=== PATIENT | male | born 1960 | race Caucasian/White ===

== ENCOUNTER 2018-04-11 08:28 | Day surgery (SDC) | payer OTHER ==
--- NOTE | 2018-04-11 05:13 | History and Physical Report ---
DATE: 04/10/2018. CHIEF COMPLAINT AND HISTORY OF CHIEF COMPLAINT: This patient presents with a history of an intractable postcervical laminectomy radiculopathy. Due to the failure of therapy, a spinal cord stimulator trial was conducted on 02/20/2018 with greater than 75 percent pain control. Due to the failure of all therapies and the success of the stimulator trial, the patient is here for permanent implantation of a spinal cord stimulator. PAST MEDICAL HISTORY: Hypertension. PAST SURGICAL HISTORY: Shoulder surgery, hip surgery, knee surgery, lumbar spinal surgery. MEDICATIONS ON ADMISSION: To be provided. ALLERGIES: None. SOCIAL HISTORY: Noncontributory. FAMILY HISTORY: Cancer. REVIEW OF SYSTEMS: The patient is appropriate and in no acute distress. The remainder of the systems review shows glasses, degenerative arthritis, hypertension. PHYSICAL EXAMINATION: General: Height and weight unavailable. Vital Signs: Not available. HEENT: Within normal limits. Lungs: Clear. Heart: Regular rate and rhythm. Abdomen: Nontender. Musculoskeletal: Examination of the musculoskeletal system shows diffuse tenderness throughout the cervical spine. Range of motion does produce pain throughout the neck and extending into the shoulder and arms bilaterally. No motor or sensory field abnormalities. Neurologic: Cranial nerves are intact. IMPRESSION: 1. CERVICAL RADICULITIS, ICD-10 CODE M54.12. 2. POSTLAMINECTOMY SYNDROME, ICD-10 CODE M96.1. PLAN: The patient is here following the successful trial for permanent spinal cord stimulator implant. The potential risks, side effects, and complications have been carefully reviewed and discussed. Information was provided by the health therapist, and he had direct contact with the clinical specialist to educate and inform the patient of the risks. He understands and has consented. The procedure will be considered outpatient, although an overnight stay will be evaluated. JOB NUMBER: [id number] cc: Saige Casey
[~2018-04-11 08:28] MED LIST: ACETAMINOPHEN 1,000 MG/100 ML BTL IV ONE; CEFAZOLIN 2 Gram 2 GM/50 ML BAG IVPB ONE; FAMOTIDINE 20MG TABLET PO ONE; METOCLOPRAMIDE 10 MG TABLET PO ONE; SCOPOLAMINE 1 PATCH TDSY TD ONE
[2018-04-11] MEDS ORDERED: LIDOCAINE 1% MDV (10MG/ML) 20ML VIAL SQ ONE (08:29)
[2018-04-11] MEDS ORDERED: *PACU ONLY* KETAMINE HCL 10 MG/ML (20ML) VIAL IV ONE (08:29)
[2018-04-11] MEDS ORDERED: FENTANYL PF 100MCG/2ML VIAL IV ONE ×2 (08:29)
[2018-04-11] MEDS ORDERED: LIDOCAINE 1% W/EPI 1:200,000 MPF 30ML SQ ONE (08:29)
[2018-04-11] MEDS ORDERED: BUPIVACAINE 0.5% W/EPI MPF 30 ML VIAL IVP ONE (08:29)
[2018-04-11] MEDS ORDERED: CEFAZOLIN 1G VIAL IM ONE (08:29)
[2018-04-11] MEDS ORDERED: MIDAZOLAM HCL 2MG/2ML VIAL IV ONE (08:29)
[2018-04-11] MEDS ORDERED: FLUMAZENIL 1MG/10ML VIAL IV ONE (08:29)
[2018-04-11] MEDS ORDERED: PROPOFOL 10 MG/ML VIAL IV ONE (08:29)
--- NOTE | 2018-04-11 11:17 | Operative Note - Ferro ---
DATE OF SURGERY: 04/11/18 PREOPERATIVE DIAGNOSIS: POST CERVICAL LAMINECTOMY SYNDROME, ICD-10 CODE = M96.1 WITH RADICULOPATHY, ICD- 10 CODE = M54.12. SURGERY: 1. FLUOROSCOPIC-GUIDED EPIDURAL ACCESS LEFT T1-2. PLACEMENT OF SPINAL CORD STIMULATOR LEAD 1, A [employer] INFINION 16 WITH 6 ELECTRODES POSITIONED LEFT C2. 2. FLUOROSCOPIC-GUIDED EPIDURAL ACCESS LEFT T2-3. PLACEMENT OF SPINAL CORD STIMULATOR LEAD 2, A [employer] INFINION 16 WITH 6 ELECTRODES POSITIONED RIGHT C2. 3. COMPLEX PROGRAMMING OF LEAD 1 OVER 20 MINUTES FOLLOWED BY COMPLEX PROGRAMMING OF LEAD 2 OVER 20 MINUTES. 4. INCISION, SUBCUTANEOUS DISSECTION, AND ANCHORING OF LEAD 1 AND LEAD 2 TO SUPRASPINOUS FASCIA USING A [employer] LOCKING ANCHOR. 5. INCISION, SUBCUTANEOUS DISSECTION, AND CREATION OF A SUBCUTANEOUS POUCH LEFT FLANK, A SITE PICKED BY PATIENT FOR GENERATOR IDENTIFIED [employer] PROGRAMMABLE, RECHARGEABLE WAVEWRITER. 6. TUNNELING BETWEEN POUCHES WITH PLACEMENT OF EXTERNAL PORTION OF LEAD 1 AND LEAD 2 INTO GENERATOR POUCH, EACH LEAD INTERFACED TO GENERATOR. 7. CLOSURE OF BOTH INCISIONS WITH VICRYL FOR FASCIA AND A RUNNING SUBCUTICULAR VICRYL FOR SKIN. DERMABOND CLOSURE. 8. COMPLEX PROGRAMMING INTERNAL GENERATOR HOME USE 2 STIMULATORS RECOVERY ROOM 20 MINUTES. SURGEON: STACEY BARONE D.O. ANESTHESIA: LOCAL SEDATION. ANESTHESIA PROVIDER: VALARIE ROSENBAUM CRNA. INDICATIONS: This patient with a history of an intractable cervical radiculopathy secondary to spinal surgery had a stimulator trial conducted with 75 to 85% pain control. Due to the failure of all therapies and the success of the trial, he presents today for implantation of a permanent system. SURGERY: Intravenous line, vital sign monitoring, IV sedation, prepped and draped in sterile technique. Under imaging, the epidural interspace left of the midline at T1-2 and 2-3 were marked and infiltrated. Using standard epidural needles with [id number] at T1-2, spinal cord stimulator lead 1, a [employer] Infinion 16 with 6 electrodes positioned left of midline at C2. Epidural access at 2-3, spinal cord stimulator lead 2, also a [employer] Infinion 16 with 6 electrodes positioned right at C2. Complex programming of lead 1 over 20 minutes followed by complex programming of lead 2 over 20 minutes resulting in complete patterns of stimulation across the back of his neck, shoulders, and arms. The patient indicating we had all the areas of the pain. He was given the option to implant or continue to program. He opted to implant. The skin above and below the needles infiltrated, incision made, and subcutaneous dissection was conducted to the supraspinous fascia. Each lead was then anchored to the supraspinous fascia with a [employer] locking anchor once the needles had been removed. At the left flank, a site picked by the patient for the generator, a [employer] programmable, rechargeable WaveWriter, skin infiltrated, incision made and subcutaneous dissection was conducted to form a pouch of suitable size and depth for the generator. Antibiotic irrigation and Bovie for hemostasis. A tunneling tool was then used to carry the leads into the generator pouch and each lead was interfaced with the generator. The leads were placed into their pouch and secured to the posterior fascia with a nonabsorbable suture. Both incisions were closed with Vicryl for fascia and a running subcuticular Vicryl for skin. A Dermabond closure was placed. He was transported to the Recovery stable. No side-effects from the procedure or the sedation. Full functionality of the extremities. No significant or appreciable pain. He was monitored until stable and then prepared for admission for overnight observation. IN THE MORNING, DISCHARGE INSTRUCTIONS: 1. The sites will remain clean and dry. The Dermabond will allow showering but no bathing, no sitting in water. 2. Standard medications resumed including the antibiotic, Levaquin, 500 mg once a day for 14 days. 3. The office will contact the patient in 12 to 24 hours to set up an appointment in 7 to 10 days to evaluate the sites. Until then, he is to keep his activities low. All other instructions provided, numbers to contact if problems given. He will be discharged in the morning. cc: Primary JOB NUMBER: [id number] MTDD
[2018-04-11] MEDS ORDERED: METOCLOPRAMIDE HCL 10 MG/2 ML VIAL IVP PRN (11:20)
[2018-04-11] MEDS ORDERED: METOCLOPRAMIDE 10 MG TABLET PO PRN (11:20)
[2018-04-11] MEDS ORDERED: HYDROMORPHONE HCL 2 MG/ML VIAL IM PRN ×2 (11:20)
[2018-04-11] MEDS ORDERED: TEMAZEPAM 15 MG CAPSULE PO PRN ×2 (11:20)
[2018-04-11] MEDS ORDERED: AL HYDROX/MAG HYDROX 30ML UD PO PRN (11:20)
[2018-04-11] MEDS ORDERED: OXYCODONE/APAP 10MG-325MG TABLET PO PRN ×2 (11:20)
[2018-04-11] MEDS ORDERED: DIPHENHYDRAMINE HCL 50 MG/ML VIAL IVP PRN ×2 (11:20)
[2018-04-11] MEDS ORDERED: SENNOSIDES/DOCUSATE SODIUM UD CAPSULE PO PRN ×2 (11:20)
[2018-04-11] MEDS ORDERED: HYDROCODONE/APAP 7.5/325MG TABLET PO PRN ×2 (11:20)
[2018-04-11] MEDS ORDERED: DIPHENHYDRAMINE HCL 25 MG CAPSULE PO PRN ×2 (11:20)
[2018-04-11] MEDS ORDERED: ACETAMINOPHEN 325 MG TAB PO PRN ×2 (11:20)
[2018-04-11] MEDS ORDERED: TRAMADOL HCL 50 MG TABLET PO PRN (12:31)
[2018-04-11] MEDS: TRAMADOL HCL 50 MG TABLET PO PRN ×2 (12:57→18:13)
[2018-04-11] MEDS: CEFAZOLIN 2 Gram 2 GM/50 ML BAG IVPB SCH (18:11)
[2018-04-11] MEDS ORDERED: PATIENT OWN MED: FINASTERIDE 5 MG PO SCH (22:00)
[2018-04-11] MEDS ORDERED: 0.9 % SODIUM CHLORIDE 10ML SYR IVP SCH (22:00)
[2018-04-12] MEDS: TRAMADOL HCL 50 MG TABLET PO PRN ×2 (00:04→06:06)
[2018-04-12] MEDS: CEFAZOLIN 2 Gram 2 GM/50 ML BAG IVPB SCH (02:11)
[2018-04-12] MEDS ORDERED: BENAZEPRIL PO SCH (10:00)
[2018-04-12] MEDS ORDERED: AMLODIPINE PO SCH (10:00)
[2018-04-12] MEDS ORDERED: HCTZ PO SCH (10:00)
[2018-04-12] MEDS ORDERED: TRIAMTERENE PO SCH (10:00)
--- NOTE | 2018-04-14 15:12 | RADIOLOGY REPORT ---
DATE: 04/11/2018. EXAM: AP CERVICAL SPINE. HISTORY: Postoperative. TECHNIQUE: AP cervical spine. COMPARISON: None. FINDINGS: There are two stimulating wires with the proximal tips projecting over C2. Correlate with intraoperative findings. IMPRESSION: POSTSURGICAL CHANGE ABOVE. JOB NUMBER: [id number] MTDD
== END 2018-04-12 10:30 | disposition home or self-care (01) ==
LOC: SUR 08:28 → MEDSURG 11:17 → SUR 04-12 10:30
PROVIDERS: ATTEND Pain Medicine Interventional Pain Medicine
DX: M96.1 Postlaminectomy syndrome, not elsewhere classified (principal); M54.12 Radiculopathy, cervical region; I10 Essential (primary) hypertension
CPT/HCPCS: 72020; 95972; C1820; C1883; J0690

== ENCOUNTER 2018-08-03 07:01 | Day surgery (SDC) | payer OTHER ==
--- NOTE | 2018-08-02 08:29 | History and Physical - Ferro ---
CHIEF COMPLAINT/HISTORY OF CHIEF COMPLAINT: This patient presents today with a history of a post lumbar laminectomy. On 07/02/18 a lumbar spinal cord stimulator trial was performed with 75-85% pain control. Due to failure of all therapy and the success of the trial the patient presents today for implantation of a permanent system. PAST MEDICAL HISTORY: Hypertension. PAST SURGICAL HISTORY: Spinal surgery. 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 MEDICATIONS ON ADMISSION: List to be provided. ALLERGIES: None. FAMILY/PSYCHOSOCIAL HISTORY: Social history - Noncontributory. Family history - Cancer. SYSTEMS REVIEW: The patient is appropriate in no acute distress. The remainder of the systems review is positive for glasses, degenerative arthritis , and hypertension. PHYSICAL EXAMINATION: Height is 5'11", weight is 240. Vital signs - Blood pressure is 140/80. HEENT: Within normal limits. LUNGS: Clear. HEART: Regular rate and rhythm. ABDOMEN: Nontender. MUSCULOSKELETAL: Examination of the musculoskeletal system shows diffuse tenderness lumbar spine adjacent to laminectomy scar. Range of motion does produce pain throughout the low back and extending into both lower extremities. There currently are no motor or sensory abnormalities. NEUROLOGIC: Cranial nerves are intact. IMPRESSION: LUMBAR RADICULOPATHY, ICD-10 CODE M54.16 AND M54.17. PLAN: The patient is here for a lumbar spinal cord stimulator due to a successful trial and failure of all other therapies. The potential risks, side effects, and complications have all been carefully reviewed discussed. The procedure will be considered outpatient, although an overnight stay will be evaluated. JOB NUMBER: [id number] MTDD
[2018-08-03] MEDS ORDERED: MIDAZOLAM HCL 2MG/2ML VIAL IV ONE (07:02)
[2018-08-03] MEDS ORDERED: FENTANYL PF 100MCG/2ML VIAL IV ONE (07:02)
[2018-08-03] MEDS ORDERED: BUPIVACAINE 0.5% W/EPI MPF 30 ML VIAL IVP ONE (07:02)
[2018-08-03] MEDS ORDERED: 0.9 % SODIUM CHLORIDE 10 ML VIAL IVP ONE (07:02)
[2018-08-03] MEDS ORDERED: LIDOCAINE 2% MDV (20MG/ML) 20ML VIAL IV ONE (07:02)
[2018-08-03] MEDS ORDERED: LIDOCAINE 1% W/EPI 1:200,000 MPF 30ML SQ ONE (07:02)
[2018-08-03] MEDS ORDERED: PROPOFOL 10 MG/ML VIAL IV ONE (07:02)
[2018-08-03] MEDS ORDERED: CEFAZOLIN 1G VIAL IM ONE (07:02)
[2018-08-03] MEDS ORDERED: HYDROMORPHONE HCL 2 MG/ML VIAL IM PRN ×2 (10:23)
[2018-08-03] MEDS ORDERED: SENNOSIDES/DOCUSATE SODIUM UD CAPSULE PO PRN ×2 (10:23)
[2018-08-03] MEDS ORDERED: OXYCODONE/APAP 10MG-325MG TABLET PO PRN ×2 (10:23)
[2018-08-03] MEDS ORDERED: TEMAZEPAM 15 MG CAPSULE PO PRN ×2 (10:23)
[2018-08-03] MEDS ORDERED: HYDROCODONE/APAP 7.5/325MG TABLET PO PRN (10:23)
[2018-08-03] MEDS ORDERED: DIPHENHYDRAMINE HCL 50 MG/ML VIAL IVP PRN ×2 (10:23)
[2018-08-03] MEDS ORDERED: AL HYDROX/MAG HYDROX 30ML UD PO PRN (10:23)
[2018-08-03] MEDS ORDERED: METOCLOPRAMIDE 10 MG TABLET PO PRN (10:23)
[2018-08-03] MEDS ORDERED: ACETAMINOPHEN 325 MG TAB PO PRN ×2 (10:23)
[2018-08-03] MEDS ORDERED: METOCLOPRAMIDE HCL 10 MG/2 ML VIAL IVP PRN (10:23)
[2018-08-03] MEDS ORDERED: DIPHENHYDRAMINE HCL 25 MG CAPSULE PO PRN ×2 (10:23)
[2018-08-03] MEDS: HYDROCODONE/APAP 7.5/325MG TABLET PO PRN ×3 (10:57→23:45)
[2018-08-03] MEDS: CEFAZOLIN 2 Gram 2 GM/50 ML BAG IVPB SCH (15:17)
[2018-08-03] MEDS ORDERED: PATIENT OWN MED: FINASTERIDE 5 MG PO SCH (22:00)
[2018-08-03] MEDS ORDERED: 0.9 % SODIUM CHLORIDE 10ML SYR IVP SCH (22:00)
[2018-08-04] MEDS: CEFAZOLIN 2 Gram 2 GM/50 ML BAG IVPB SCH ×2 (03:18→09:03)
[2018-08-04] MEDS: HYDROCODONE/APAP 7.5/325MG TABLET PO PRN ×2 (03:25→09:52)
[2018-08-04] MEDS ORDERED: TRAMADOL HCL 50 MG TABLET PO PRN (08:00)
[2018-08-04] MEDS ORDERED: AMLODIPINE PO SCH (10:00)
[2018-08-04] MEDS ORDERED: BENAZEPRIL PO SCH (10:00)
[2018-08-04] MEDS ORDERED: HCTZ PO SCH (10:00)
[2018-08-04] MEDS ORDERED: TRIAMTERENE PO SCH (10:00)
--- NOTE | 2018-08-04 10:51 | Operative Note ---
DATE OF SURGERY: 08/03/18 PREOPERATIVE DIAGNOSES: POST LUMBAR LAMINECTOMY SYNDROME WITH INTRACTABLE RADICULOPATHY, ICD-10 CODE = M96.1 WITH M54.16 AND M54.17. OPERATION: 1. FLUOROSCOPICALLY-GUIDED EPIDURAL ACCESS LEFT T11-12, PLACEMENT OF SPINAL CORD STIMULATOR LEAD 1, A [employer] INFINION 16 WITH 6 ELECTRODES POSITIONED LEFT T8. 2. FLUOROSCOPICALLY-GUIDED EPIDURAL ACCESS LEFT 12-1, PLACEMENT OF SPINAL CORD STIMULATOR LEAD 2, A [employer] INFINION 16 WITH 6 ELECTRODES POSITIONED RIGHT T8. 3. COMPLEX PROGRAMMING OF LEAD 1 OVER 20 MINUTES FOLLOWED BY COMPLEX PROGRAMMING OF LEAD 2 OVER 20 MINUTES. 4. INCISION, SUBCUTANEOUS DISSECTION, AND ANCHORING OF LEAD 1 AND LEAD 2 TO SUPRASPINOUS FASCIA USING A [employer] LOCKING ANCHOR. 5. INCISION, SUBCUTANEOUS DISSECTION, AND CREATION OF A SUBCUTANEOUS POUCH AT RIGHT POSTERIOR GLUTEAL ARDON FOR PLACEMENT OF GENERATOR IDENTIFIED A [employer] PROGRAMMABLE RECHARGEABLE WAVEWRITER. 6. TUNNELING BETWEEN POUCHES, PLACEMENT OF EXTERNAL PORTION OF LEAD 1 AND LEAD 2 INTO GENERATOR POUCH, EACH LEAD INTERFACED TO THE GENERATOR. 7. CLOSURE OF INCISIONS USING STRATAFIX SUTURE 2-0 FASCIA, 3-0 SKIN. DERMABOND CLOSURE. 8. COMPLEX RECOVERY ROOM PROGRAMMING INTERNAL GENERATOR, HOME USE, TWO STIMULATORS, 20 MINUTES. SURGEON: STACEY BARONE D.O. ANESTHESIA: LOCAL SEDATION. ANESTHESIA PROVIDER: RADHA Sarabia. INDICATION: This patient with a history of intractable post lumbar laminectomy radiculopathy. Due to the failure of all therapies and the success of a stimulator trial, he is here for permanent implantation. PROCEDURE: Intravenous line, vital sign monitoring, IV sedation, prepped and draped in sterile technique. Patient position prone. The epidural interspace at 12-1 and 11-12 were identified, marked, and infiltrated with local then two standard curved axis Epimed needles with [id number] into the space. At 11-12, spinal cord stimulator lead 1, a [employer] Infinion 16 with 6 electrodes was positioned left at T8. Epidural access was then performed at 12-1 , same technique, similar needle, and spinal cord stimulator lead 2, a [employer] Infinion 16 with 6 electrodes was positioned right at T8. Complex programming of lead 1 over 20 minutes followed by complex programming of lead 2 over 20 minutes resulting in complete patterns of stimulation across the back and into the legs; patient indicating we had all of the areas of the pain. He was given the option to implant, continue to program; he opted to implant. Questions repeated with the same response. The skin above and below both needles was infiltrated, incision made, and subcutaneous dissection was conducted to the supraspinous fascia. Each of the leads was then anchored to the supraspinous fascia with a [employer] Locking [place]. At the right posterior gluteal margin, a site picked by the patient for the generator, skin infiltrated, incision made, and subcutaneous dissection was conducted to form a pouch of suitable size and depth for the generator identified as a [employer] and nonabsorbable suture. At L1-2, which is below the dural puncture , skin infiltrated and an 18-gauge Tuohy needle with [id number] into the epidural space. Simultaneously, 20 mL of autologous blood drawn sterile technique left antecubital. Blood placed onto the field then an epidural blood patch was performed at this level with this blood. Needle removed. At the left flank, a site picked by the patient for the generator, skin infiltrated, incision made, and subcutaneous dissection was conducted to form a pouch of suitable size and depth for the generator. A tunneling tool was used to carry the leads into the generator pouch and then each lead was interfaced to the generator. Antibiotic irrigation and Bovie for hemostasis. The generator was placed into the pouch, the leads were placed in their own pouch, and then the incisions were closed using STRATAFIX suture 2-0 fascia and 3-0 skin. Dermabond closure. He was transported to the Recovery Room stable, no side-effects from the procedure or the sedation. When fully awake and alert, complex programming of the system performed in the Recovery Room re-establishing stimulation and pain control to all of the appropriate areas. He will be kept overnight for observation and discharged in the morning. DISCHARGE INSTRUCTIONS: 1. Sites remain clean and dry although the Dermabond will showering, should not sit in water. 2. Standard medications resumed including the antibiotic Levaquin 500 mg once a day for 14 days. 3. The office will contact the patient in 12-24 hours to set up a time in 7-10 days to evaluate the sites. Until then, his activities should stay low. cc: Dr. aIn Javier JOB NUMBER: [id number] [facility]
--- NOTE | 2018-08-05 21:01 | RADIOLOGY REPORT ---
EXAM: SPINE, 1 VIEW HISTORY: POST SPINAL CORD STIMULATOR IMPLANT. TECHNIQUE: AP portable view of the thoracolumbar spine beginning at about the T7 level and extending down into the mid sacrum. COMPARISON: Prior thoracic spine film dated 04/11/18. FINDINGS: There is a battery pack overlying the left mid abdomen with catheters extending from this up along the left hemithorax, which may correspond to the pain stimulator wires previously seen overlying the cervical region on the prior film. There is a battery pack overlying the right lower quadrant today with the catheters probably extending up to the new stimulating wires, which extend up to the presumed T8 level. Extensive laminectomy from L3 to the sacrum. IMPRESSION: STIMULATOR WIRES, APPARENTLY ASSOCIATED WITH A BATTERY PACK OVERLYING THE RIGHT LOWER QUADRANT, EXTEND UP TO THE PRESUMED T8 LEVEL DESCRIBED ABOVE. JOB NUMBER: [id number] [id number]
== END 2018-08-04 10:00 | disposition home or self-care (01) ==
LOC: SUR 07:01 → MEDSURG 10:32 → SUR 08-04 10:00
PROVIDERS: ATTEND Pain Medicine Interventional Pain Medicine
DX: M96.1 Postlaminectomy syndrome, not elsewhere classified (principal); M54.16 Radiculopathy, lumbar region; M54.17 Radiculopathy, lumbosacral region; I10 Essential (primary) hypertension; N40.0 Benign prostatic hyperplasia without lower urinary tract symptoms
CPT/HCPCS: 63685; 00300; 95972; 72020; J3010; J0690 ×2; C1820; C1883